=== PATIENT | female | born 1970 | race Caucasian/White ===

== ENCOUNTER 2017-04-15 19:02 | Emergency (ER) | payer MEDICAID ==
[~2017-04-15] VITALS: Ht 162.6 cm; Wt 91.6 kg
[2017-04-15 20:17] VITALS: BP 141/81
== END 2017-04-15 20:20 | disposition home or self-care (01) ==
LOC: ED 20:14
DX: H10.021 Other mucopurulent conjunctivitis, right eye (principal); H10.022 Other mucopurulent conjunctivitis, left eye; G89.29 Other chronic pain; M54.9 Dorsalgia, unspecified
CPT/HCPCS: 99283

== ENCOUNTER 2018-12-26 13:55 | Emergency (ER) | payer BC, MEDICAID ==
[~2018-12-26] VITALS: Ht 165.1 cm; Wt 93.2 kg
[2018-12-26 14:06] VITALS: BP 158/103
[2018-12-26] MEDS ORDERED: DEXAMETHASONE 4 MG TABLET PO ONE (14:30)
[2018-12-26] MEDS ORDERED: DEXAMETHASONE 4 MG TABLET ONE (14:33)
== END 2018-12-26 14:41 | disposition home or self-care (01) ==
LOC: ED 14:35
DX: J02.0 Streptococcal pharyngitis (principal); G89.29 Other chronic pain; M54.9 Dorsalgia, unspecified
CPT/HCPCS: 99283

== ENCOUNTER 2021-01-10 14:09 | Emergency (ER) | payer BC, MEDICAID ==
[~2021-01-10] VITALS: Ht 162.6 cm; Wt 96.8 kg
[2021-01-10 15:09] LABS: MEAN CORPUSCULAR HGB CONC 33.1 g/dL (32.4-35.8); MEAN PLATELET VOLUME 6.8 fL (7.4-10.4); PLATELET COUNT 332 x10^3/uL (130-400); RED BLOOD COUNT 5.73 x10^6/uL (3.82-5.3); RED CELL DISTRIBUTION WIDTH 14.8 % (9.6-15.2)
[2021-01-10 15:22] LABS: ANION GAP 3 mmol/L (5-15); CALCIUM 8.5 mg/dL (8.5-10.1); CHLORIDE 104 mmol/L (98-107); CREATININE 0.86 mg/dL (0.55-1.02)
[2021-01-10 15:58] LABS: BAND#(MANUAL) 0.14 x10^3/uL; BANDS%(MANUAL) 1 % (0-7); LYMPH#(MANUAL) 6.21 x10^3/uL (1-3.4); LYMPHS% (MANUAL) 46 % (22-44); MONOS#(MANUAL) 0.81 x10^3/uL (0.3-2.7); MONOS% (MANUAL) 6 % (2-9); REACTIVE LYMPHS # (MANUAL) 1.22 x10^3/uL (0-0); REACTIVE LYMPHS % (MANUAL) 9 % (0-0); SEG#(MANUAL) 5.13 x10^3/uL (1.8-6.8); SEGS% (MANUAL) 38 % (42-75)
[2021-01-10 15:59] LABS: <PLATELET ESTIMATE> ADEQUATE; <PLT MORPHOLOGY> NORMAL PLT MORPH; <RBC MORPHOLOGY> NORMAL
--- NOTE | 2021-01-10 16:24 | NUR ---
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
[2021-01-10] MEDS ORDERED: SODIUM CHLORIDE 0.9% 1,000ML IVBOLUS ONE ×2 (16:30→20:30)
[2021-01-10] MEDS ORDERED: SODIUM CHLORIDE FLUSH 10ML SYR IVF ONE (16:30)
--- NOTE | 2021-01-10 17:00 | NUR ---
pt presnet to ed with c/o cough since december 21 and intermittent fever. states chest pain when cough gets really bad. pt a&o, resps even and unlabored, vss, nadn.
--- NOTE | 2021-01-10 17:01 | NUR ---
PIV placed, fluids infusing.
[2021-01-10] MEDS ORDERED: MORPHINE SULFATE 4 MG/ML, 1ML ONE (17:40)
[2021-01-10] MEDS ORDERED: ONDANSETRON 2MG/ML, 2ML ONE (17:40)
[2021-01-10] MEDS ORDERED: ONDANSETRON 2MG/ML, 2ML IVPush ONE (18:00)
[2021-01-10] MEDS ORDERED: MORPHINE SULFATE 4 MG/ML, 1ML IVPush PRN (18:00)
--- NOTE | 2021-01-10 19:14 | NUR ---
assuming care of pt after bedside report from nicolás. pt resting in bed. vss. medrano.
[2021-01-10] MEDS ORDERED: OMNIPAQUE 350 MG/ML, 75ML BOTTLE ONE (19:41)
[2021-01-10 20:57] LABS: MICROSCOPIC NOT IND
--- NOTE | 2021-01-10 21:10 | NUR ---
UPDATED ON PLAN OF CARE. NO NOTED ADDITIONAL NEEDS AT THIS TIME. CALL LIGHT WITHIN REACH, BED IN LOWEST LOCKED POSITION, SIDE RAILS X 2 UP. VSS. WILL CONTINUE TO MONITOR.
[2021-01-10 22:10] VITALS: BP 121/74
== END 2021-01-10 22:12 | disposition home or self-care (01) ==
LOC: ED 14:39
DX: J42 Unspecified chronic bronchitis (principal); Z20.822 Contact with and (suspected) exposure to COVID-19; R00.0 Tachycardia, unspecified
CPT/HCPCS: 36415; 71046; 71275; 80048; 81003; 83605; 84145; 84443; 85025; 87040; 93005; 96361; 96374; 96375; 99285; J2270; J2405; J7030; Q9967; U0003; U0005